=== PATIENT | male | born 1995 | race Caucasian/White ===

== ENCOUNTER 2017-05-06 22:51 | Emergency (ER) | payer OTHER ==
[~2017-05-06] VITALS: Ht 180.3 cm; Wt 87.0 kg
[2017-05-06 22:52] VITALS: BP 136/76; PULSE 90; RESP 18; TEMP 99.3; O2SAT 96
--- NOTE | 2017-05-07 03:57 | PD ---
HPI Chief Complaint: Laceration/Skin Injury Time Seen by Provider: 03:48 Travel History International Travel<30 days: No Contact w/Intl Traveler<30days: No Traveled to known affect area: No History of Present Illness HPI [id number] male presents for evaluation of lacerations to the finger pad of the left third digit. He actually stabbed his finger with a knife when he was trying to clean the knife with a sponge at 10 PM today. He has pain at the site of laceration, bleeding. Aching pain worse with palpation. No numbness, tingling, range of motion limitation. Last tetanus vaccination unknown. No other complaints. PFSH Past Medical History Respiratory: Yes (ASTHMA) Social History Alcohol Use: No Tobacco Use: No Substance Use: No Allergies-Medications (Allergen,Severity, Reaction): Coded Allergies: fentanyl (Verified Allergy, Severe, Swelling, 05/07/17) SWELLING AND HIVES Reported Meds & Prescriptions Reported Meds & Active Scripts Active No Active Prescriptions or Reported Medications Review of Systems Musculoskeletal: No: Limited ROM Skin: Positive Other (positive for laceration, pain, bleeding) Neurologic: No: Paresthesia Physical Exam Narrative GENERAL: Well-developed well-nourished male in no acute distress SKIN: Warm and dry. 2 cm laceration to the finger pad of the left third finger. Extremities: Skin as noted above. The patient maintains full flexion and extension against resistance at the left third finger MCP, PIP and DIP joints. Distal sensation is preserved in the radial and ulnar aspect of the left third finger. Data Data Last Documented VS Vital Signs Date Time Temp Pulse Resp B/P (MAP) Pulse Ox O2 Delivery O2 Flow Rate FiO2 05/06/17 22:52 99.3 90 18 136/76 (96) 96 Room Air Orders Orders Finger ([id number]) (05/07/17 ) Tetanus/Diphtheria Tox Adult (Tetanus/Di (05/07/17 04:00) Lidocaine 1% Inj (50 Ml) (Xylocaine 1% I (05/07/17 04:00) Bupivacaine Pf 0.5% Inj (Marcaine Pf 0.5 (05/07/17 04:00) MDM Medical Decision Making Medical Screen Exam Complete: Yes Emergency Medical Condition: Yes Medical Record Reviewed: Yes Differential Diagnosis Finger laceration, open fracture, flexor tendon injury, neurovascular injury Narrative Course 21-year-old male here with a 2 cm laceration to the finger pad of the left third digit after he accidentally punctured his finger with a knife while cleaning it with a sponge. X-ray imaging reveals no acute abnormalities. Tetanus status updated. The patient verbally consents laceration repair. After digital block was performed the wound was thoroughly irrigated and explored with no evidence of flexor tendon injury. Procedures Procedure Narrative LACERATION LOCATION: Left third finger LENGTH: 2 cm NUMBER OF STITCHES/PRO: 8 REPAIR: The area of the laceration was prepped with Betadine and sterilely draped. The laceration was infiltrated with 1% lidocaine, 0.5% Marcaine. The wound was copiously irrigated and explored without evidence of foreign body, tendon injury or neurovascular injury. The wound was closed using 5-0 PROLENE simple interrupted. This was a single layer repair. A sterile dressing was applied. The patient was advised to keep the dressing clean and dry. Patient tolerated the procedure well. Diagnosis Primary Impression: Laceration of finger Qualified Codes: S61.213A - Laceration without foreign body of left middle finger without damage to nail, initial encounter Additional Instructions: Wash daily with soap and water and apply antibiotic cream daily. Return in 10- 14 days for suture removal. Med/Other Pt SpecificInfo: No Change to Meds, Wound Care Scripts No Active Prescriptions or Reported Meds Disposition: 01 DISCHARGE HOME Condition: Stable Tahir Marte May 07, 2017 03:57
[2017-05-07] MEDS ORDERED: TETANUS/DIPHTHERIA TOXOID ADULT 0.5 ML VIAL IM ONE (04:00)
[2017-05-07] MEDS ORDERED: LIDOCAINE HCL 1% 50 ML VIAL INFIL ONE (04:00)
[2017-05-07] MEDS ORDERED: BUPIVACAINE HCL PF 0.5% 10 ML VIAL INFIL ONE (04:00)
--- NOTE | 2017-05-07 04:20 | RADRPT ---
EXAM DATE/TIME: 05/07/2017 03:50 [facility] COMPARISON: No previous studies available for comparison. INDICATIONS : Patient cut 3rd digit, left hand with kitchen knife. Laceration to 3rd DIPJ, anterior surface. MEDICAL HISTORY : None. SURGICAL HISTORY : None. ENCOUNTER: Initial ACUITY: 1 day PAIN SCORE: 6/10 LOCATION: Left 3rd DIPJ, left hand. FINDINGS: 3 views of the left hand third digit demonstrate no fracture or dislocation. There is some type of ti ssue, likely gauze, overlying the distal aspect of the third digit. No definite radiopaque foreign andrea dy is visualized overlying the distal third digit soft tissues. CONCLUSION: No acute osseous abnormality is identified. Soft tissues are partially obscured secondary to overlyin g material/gauze. No definite radiopaque foreign body is seen. Tj Messina MD on May 07, 2017 at 4:18 Board Certified Radiologist. This report was verified electronically.
== END 2017-05-07 04:54 | disposition home or self-care (01) ==
LOC: NEPD 22:51
DX: S61.213A Laceration without foreign body of left middle finger without damage to nail, initial encounter (principal); W26.0XXA Contact with knife, initial encounter; Y93.G1 Activity, food preparation and clean up; Y92.000 Kitchen of unspecified non-institutional (private) residence as the place of occurrence of the external cause; J45.909 Unspecified asthma, uncomplicated; Z23 Encounter for immunization
CPT/HCPCS: 12001; 73140; 90471; 90714